=== PATIENT | female | born 1965 | race Caucasian/White ===

== ENCOUNTER 2021-02-13 14:19 | Outpatient (CLI) | payer MEDICARE, SELFPAY ==
[2021-02-13 16:49] LABS: Potassium 3.9 mmol/L (3.4-5.0)
[2021-02-13 16:50] LABS: Anion Gap 6 mmol/L (8-16); Blood Urea Nitrogen 29 mg/dL (7-17); Calcium 9.7 mg/dL (8.4-10.2); Carbon Dioxide 31 mmol/L (22-30); Chloride 102 mmol/L (98-107); Estimated Glomerular Filt Rate 57; Glucose 121 mg/dL (65-105); Sodium 139 mmol/L (137-145)
[2021-02-13 17:29] LABS: Creatinine Urine 62.9 mg/dL
[2021-02-13 17:43] LABS: MALB Creatinine Ratio < 9.5 mg/g (0-30); Microalbumin Urine Random < 6.0 mg/L (0-16.7)
== END 2021-02-13 14:20 | disposition home or self-care (01) ==
PROVIDERS: Visit Provider Internal Medicine Endocrinology, Diabetes & Metabolism
DX: E10.65 Type 1 diabetes mellitus with hyperglycemia (principal)
CPT/HCPCS: 36415; 80048; 82043; 82607; 84443